=== PATIENT | male | born 2000 | race Caucasian/White ===

== ENCOUNTER 2022-10-02 15:41 | Emergency (ER) | payer OTHER, SELFPAY ==
[2022-10-02 15:50] VITALS: BP 119/56; PULSE 78; RESP 16; TEMP 36.4; O2SAT 100
--- NOTE | 2022-10-02 16:37 | ED.SKABFB ---
HPI - Skin/Abscess/Foreign Bdy General Chief complaint: Skin/Abscess/Foreign Body Stated complaint: insect bite Source: patient Mode of arrival: ambulatory Limitations: no limitations History of Present Illness HPI narrative: 22 y/o male presented for c/o abscess to left upper arm for 4 days. States it started as small red dot and has increased in size and is more painful. Applying [place] and taking ibuprofen. Denies any other locations of similar lesions. Denies itching or drainage from the site. Related Data Home Medications Medication Instructions Recorded Confirmed adalimumab 80 mg/0.8 mL 80 mg subcut DIRECTED 10/02/22 10/02/22 subcutaneous pen kit (Humira(CF) Pen) Allergies Allergy/AdvReac Type Severity Reaction Status Date / Time Penicillins Allergy Hives Verified 10/02/22 16:09 Review of Systems Review of Systems: CONSTITUTIONAL: Denies body aches, fever, chills, or sweats. CARDIOVASCULAR: Denies chest pain, palpitations, or edema. RESPIRATORY: Denies cough or dyspnea. GASTROINTESTINAL: Denies abdominal pain, nausea, vomiting, or diarrhea. SKIN: reports abscess to WES MUSCULOSKELETAL: Denies back pain, joint pain, or myalgia. NEUROLOGIC: Denies headache, numbness, tingling, or weakness. PMFSH Comments At time of signature, I have reviewed and agree with nursing past medical, surgical, social and family history unless otherwise noted. Please see nursing chart for further information. There is no relevant family history pertinent to the presenting complaint Exam Narrative: GENERAL: Well-appearing EYES: conjunctivae clear, and EOMI. ENT: Mucous membranes moist. Oropharynx without edema, erythema or lesions. NECK: Supple. No lymphadenopathy CHEST: Clear to auscultation. HEART: Regular rate and rhythm. SKIN: Warm, dry. Left upper arm abscess approx 2cm diameter, fluctuant, red, raised and tender; no active drainage; surrounding erythema approx 3.5cm diameter NEURO: Alert and oriented x3. Course Course Emergency Course: Patient is aware of diagnosis, understands and agrees to treatment plan. Anticipatory guidance given. Patient agrees to follow-up as directed and is aware of reasons to seek care at the emergency department. Portions of this record may have been created with voice recognition software Level of Care: Express Care Visit Vital Signs Vital signs: Vital Signs Temperature 97.6 F 10/02/22 15:50 Pulse Rate 78 10/02/22 15:50 Respiratory Rate 16 10/02/22 15:50 Blood Pressure 119/56 L 10/02/22 15:50 Pulse Oximetry 100 10/02/22 15:50 Oxygen Delivery Room Air 10/02/22 15:50 Temperature 97.6 F 10/02/22 15:50 Pulse Rate 78 10/02/22 15:50 Respiratory Rate 16 10/02/22 15:50 Blood Pressure 119/56 L 10/02/22 15:50 Pulse Oximetry 100 10/02/22 15:50 Oxygen Delivery Room Air 10/02/22 15:50 Reviewed Procedures Abscess I/D Left upper arm: Date of Incision: 10/02/22 Local Anesthetic: lidocaine 1% and with epi Technique: incised with #11 blade and probed loculations Irrigation: Yes Packing used?: none I&D Results: Pus and Blood Abcess I&D Additional Comments: Wound cleansed. Incision into site of most fluctuance. Large amount of purulent drainage expelled. Patient tolerated well. MDM - Skin/Abscess/Foreign Bdy MDM Narrative Medical decision making narrative: Patient tolerated I and D, Culture sent. Instructed patient to go to nearest ER immediately for any worsening symptoms including but not limited to: fever, pain, redness/swelling any symptoms concerning to the patient. Differential Diagnosis Differential diagnosis: Likely abscess of skin or subcutaneous tissue, urticaria, herpes zoster, cellulitis and contact dermatitis Discharge Plan Discharge Clinical Impression: Abscess of skin or subcutaneous tissue Qualifiers: Site of cutaneous abscess: extremity Site of cutaneous abscess of e
== END 2022-10-02 17:20 | disposition home or self-care (01) ==
PROVIDERS: Emergency Provider Nurse Practitioner Family
DX: L02.414 Cutaneous abscess of left upper limb (principal)
CPT/HCPCS: 10060; 87070; 87075; 87147; 87181; 87186; 87205; 99203; G0463